=== PATIENT | male | born 1985 | race Caucasian/White ===

== ENCOUNTER 2017-07-28 16:58 | Emergency (ER) | payer MEDICAID ==
[2017-07-28] MEDS ORDERED: Phytonadione ORAL 2.5mg/2.5ml Soln Simple Syrup U/D PO ONE (17:47)
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
[2017-07-28] MEDS ORDERED: HYDROmorphone 0.5 MG/0.5 ML SYRINGE IVPUSH ONE (18:14)
[2017-07-28] MEDS ORDERED: HYDROmorphone 0.5 MG/0.5 ML SYRINGE IM ONE (18:26)
[2017-07-28 19:32] VITALS: BP 139/87
== END 2017-07-28 19:24 | disposition home or self-care (01) ==
LOC: JD.ED 16:58
DX: D68.59 Other primary thrombophilia (principal); I10 Essential (primary) hypertension; F41.9 Anxiety disorder, unspecified; F32.9 Major depressive disorder, single episode, unspecified; F43.10 Post-traumatic stress disorder, unspecified; F17.210 Nicotine dependence, cigarettes, uncomplicated; Z91.030 Bee allergy status; Z86.711 Personal history of pulmonary embolism; Z79.82 Long term (current) use of aspirin; Z79.899 Other long term (current) drug therapy; Z79.01 Long term (current) use of anticoagulants
CPT/HCPCS: 96372; 99283; A9270; J1170

== ENCOUNTER 2018-01-12 12:26 | Emergency (ER) | payer MEDICAID ==
[2018-01-12 12:41] VITALS: BP 131/88
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
== END 2018-01-12 15:00 | disposition left against medical advice (07) ==
LOC: JD.ED 12:26
DX: K94.23 Gastrostomy malfunction (principal); I10 Essential (primary) hypertension; F17.210 Nicotine dependence, cigarettes, uncomplicated; Z79.01 Long term (current) use of anticoagulants; Z91.030 Bee allergy status
CPT/HCPCS: 99282; 99284

== ENCOUNTER 2019-12-07 21:09 | Emergency (ER) | payer MEDICARE, MEDICAID ==
[2019-12-07 21:19] VITALS: BP 140/103; PULSE 96
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
== END 2019-12-07 22:49 ==
LOC: JD.ED 21:09
DX: Z02.89 Encounter for other administrative examinations (principal); I10 Essential (primary) hypertension; F41.9 Anxiety disorder, unspecified; F32.9 Major depressive disorder, single episode, unspecified; Z86.711 Personal history of pulmonary embolism; Z79.899 Other long term (current) drug therapy; Z91.030 Bee allergy status; Z79.01 Long term (current) use of anticoagulants
CPT/HCPCS: 99282; 99283